=== PATIENT | female | born 1975 | race Caucasian/White ===

== ENCOUNTER 2017-03-28 19:16 | Emergency (ER) | payer BC, MEDICAID ==
[2017-03-28] MEDS ORDERED: Ondansetron 4 MG/2 ML SDV IVPUSH STA (19:55)
[2017-03-28] MEDS ORDERED: LORazepam 2 MG/ML Syringe IVPUSH ONE ×2 (19:55→21:43)
--- NOTE | 2017-03-28 20:07 | EDM.PDOC ---
ED HPI GENERAL MEDICAL PROBLEM - General Chief Complaint: Genitourinary Problem Stated Complaint: PELVIC PAIN Time Seen by Provider: 03/28/17 19:40 Source of Information: Reports: Patient History Limitations: Reports: No Limitations - History of Present Illness INITIAL COMMENTS - FREE TEXT/NARRATIVE: This patient is a 41 year old female that presents to the ER. Patent initial complaint is having bladder pain and feels like she has a UTI. She reports that she has a prolapsed bladder and she self caths. Once talking to the patient, she has nausea and dry heaves. She did not vomit. Patient then reprots symptoms of "brain zaps" like her brain is shaking, headache, dizziness, nausea, chest pain, soa, back pain, abd pain, pain all over her body, muscle cramps all over her body. She reports that she generally feels weak and feels generally bad. She reports she has also been having sweats and feeling hot. She reports all her symptoms began last night. She reports it feels also like her fibromyalgia is flaring up as well. The patient then reports that she stopped abruptly taking her Cymbalta. She reports she has not taken it in 3 days. She takes 60mg a day. She reports she has not taken it because it is expensive and she was hoping to fill it sometime next week. After education in the ER, she reports she did not know Cymbalta withdraw can be so bad. At this time, I will order labs, ekg, troponin, ua. I will give the patient something for anxiety and withdraw in ER. She is anxious and has periods of crying. Onset Date: 03/27/17 Duration: Hour(s): (24) Location: Reports: Head, Chest, Abdomen, Back, Pelvis, Generalized Quality: Reports: Ache Severity: Moderate Improves with: Reports: None Worsens with: Reports: None Associated Symptoms: Reports: Chest Pain, Diaphoresis, Headaches, Malaise, Nausea/Vomiting, Shortness of Breath, Weakness. Denies: Confusion, Cough, cough w sputum, Fever/Chills, Loss of Appetite, Rash, Seizure, Syncope Left Back Pain Score (Numeric/FACES): 8 Pelvic Pain Score (Numeric/FACES): 8 - Related Data Allergies Allergy/AdvReac Type Severity Reaction Status Date / Time ciprofloxacin [From Cipro] Allergy Hives Verified 03/28/17 19:24 erythromycin base Allergy Vomiting Verified 03/28/17 19:24 Penicillins Allergy Rash Verified 03/28/17 19:24 tetracycline Allergy Rash Verified 03/28/17 19:24 Home Meds: Home Meds DULoxetine [Cymbalta] 60 mg PO DAILY 03/28/17 [History] Hydrochlorothiazide 25 mg PO DAILY 03/28/17 [History] Ketorolac Tromethamine 10 mg PO BID PRN 03/28/17 [History] Levothyroxine [Synthroid] 100 mg PO DAILY 03/28/17 [History] Naproxen 500 mg PO BID 03/28/17 [History] Omeprazole 40 mg PO DAILY 03/28/17 [History] Oxybutynin Chloride [Oxybutynin Chloride ER] 15 mg PO DAILY 03/28/17 [History] Phenazopyridine HCl [Pyridium] 200 mg PO TID PRN 03/28/17 [History] busPIRone [Buspar] 10 mg PO TID 03/28/17 [History] hydrOXYzine HCl [hydrOXYzine] 50 mg PO QID PRN 03/28/17 [History] tiZANidine [Zanaflex] 4 mg PO TID PRN 03/28/17 [History] Past Medical History Cardiovascular History: Reports: Hypertension Gastrointestinal History: Reports: Irritable Bowel Syndrome Genitourinary History: Reports: Retention, Urinary, Other (See Below) Other Genitourinary History: PROLAPSED [employer] History: Reports: Dysfunctional Uterine Bleeding, , Other (See Below) Other OB/BYN History: 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 Musculoskeletal History: Reports: Arthritis, Fibromyalgia Psychiatric History: Reports: Anxiety, PTSD Endocrine/Metabolic History: Reports: Hypothyroidism Oncologic (Cancer) History: Reports: Cervix - Infectious Disease History Infectious Disease History: Reports: Rheumatic Fever - Past Surgical History Endocrine Surgical History: Reports: None Oncologic Surgical History: Reports: Other (See Below) Other Oncologic Surgeries/Procedures: TOTAL HYSTERECTOMY Social & Family History - Family History Family Medical History: Noncontributory - Tobacco Use Smoking Status *Q: Former Smoker Used Tobacco, but Quit: Yes Month Tobacco Last Used: 2015 - Recreational Drug Use Recreational Drug Use: No ED ROS GENERAL - Review of Systems Review Of Systems: See Below Constitutional: Reports: Chills, Malaise, Weakness, Fatigue, Night Sweats, Diaphoresis HEENT: Reports: No Symptoms Respiratory: Reports: Shortness of Breath, Pleuritic Chest Pain, Cough Cardiovascular: Reports: Chest Pain, Lightheadedness Endocrine: Reports: Fatigue GI/Abdominal: Reports: Abdominal Pain, Nausea. Denies: Vomiting : Reports: Pain (bladder) Musculoskeletal: Reports: Back Pain Skin: Reports: No Symptoms Neurological: Reports: Dizziness, Other (difficulty maintaining thoughts. fuzzy. ) Psychiatric: Reports: Anxiety. Denies: Hallucinations, Homicidal Ideation, Suicidal Ideation Hematologic/Lymphatic: Reports: No Symptoms Immunologic: Reports: No Symptoms ED EXAM, GENERAL - Physical Exam Exam: See Below Exam Limited By: No Limitations General Appearance: Alert, WD/WN, No Apparent Distress, Anxious Eye Exam: Bilateral Eye: EOMI, Normal Inspection, PERRL Ears: Normal External Exam, Normal Canal, Hearing Grossly Normal, Normal TMs Ear Exam: Bilateral Ear: Auricle Normal, Canal Normal, TM normal Nose: Normal Inspection, Normal Mucosa, No Blood Throat/Mouth: Normal Inspection, Normal Lips, Normal Teeth, Normal Gums, Normal Oropharynx, Normal Voice, No Airway Compromise Head: Atraumatic, Normocephalic Neck: Normal Inspection, Supple, Non-Tender, Full Range of Motion Respiratory/Chest: No Respiratory Distress, Lungs Clear, Normal Breath Sounds, No Accessory Muscle Use, Chest Non-Tender Cardiovascular: Normal Peripheral Pulses, Regular Rate, Rhythm (94 on exam. ), No Edema, No Gallop, No JVD, No Murmur, No Rub Peripheral Pulses: 2+: Radial (L), Radial (R), Posterior Tibial (L), Posterior Tibial (R) GI/Abdominal: Normal Bowel Sounds, Soft, No Organomegaly, No Distention, No Abnormal Bruit, No Mass, Pelvis Stable, Tender (mild generalized. Nonspecific). No: Distended, Guarding, Rigid, Rebound, Abnormal Bowel Sounds, Hernia, Mass, Hepatomegaly, Splenomegaly (Female) Exam: Deferred Rectal (Female) Exam: Deferred Back Exam: Normal Inspection, Full Range of Motion. No: CVA Tenderness (L), CVA Tenderness (R), Decreased Range of Motion, Muscle Spasm, Paraspinal Tenderness, Vertebral Tenderness Extremities: Normal Inspection, Normal Range of Motion, Non-Tender, No Pedal Edema, Normal Capillary Refill Neurological: Alert, Oriented, CN II-XII Intact, Normal Cognition, Normal Gait, No Motor/Sensory Deficits Psychiatric: Anxious, Tearful Skin Exam: Warm, Dry, Intact, Normal Color, No Rash Lymphatic: No Adenopathy EKG INTERPRETATION EKG Date: 03/28/17 Time: 20:27 Rhythm: NSR Rate (Beats/Min): 83 [place]: Normal P-Wave: Present QRS: Normal ST-T: Normal QT: Normal Course - Vital Signs Last Recorded V/S: Last Vital Signs Temp 97.9 F 03/28/17 19:17 Pulse 100 03/28/17 19:17 Resp 20 03/28/17 19:17 BP 184/120 H 03/28/17 19:17 Pulse Ox 99 03/28/17 19:17 - Orders/Labs/Meds Orders: Active Orders 24 hr Category Date Time Status Abdomen Pelvis w Cont [CT] Stat Exams 03/28/17 20:27 Taken Labs: Laboratory Tests 03/28/17 03/28/17 03/28/17 Range/Units 19:32 19:35 19:55 WBC 11.1 H (5.0-10.0) 10^3/uL RBC 4.63 (4.00-5.50) 10^6/uL Hgb 13.7 (12.0-16.0) g/dL Hct 41.0 (37.0-47.0) % MCV 88.6 (82.0-94.0) fL MCH 29.6 (27.0-32.0) pg MCHC 33.4 (33.0-38.0) g/dL RDW Coeff of Kellie 13.1 (11.0-15.0) % Plt Count 318 (150-400) 10^3/uL Neut % (Auto) 72.2 (35-85) % Lymph % (Auto) 21.2 (10-55) % Cotton % (Auto) 5.6 (0-16) % Eos % (Auto) 0.6 (0-5) % Baso % (Auto) 0.4 (0-3) % Neut # (Auto) 8.03 H (1.80-7.00) 10^3/uL Lymph # (Auto) 2.36 (1.00-4.80) 10^3/uL Cotton # (Auto) 0.62 (0.00-0.80) 10^3/uL Eos # (Auto) 0.07 (0.00-0.45) 10^3/uL Baso # (Auto) 0.04 10^3/uL Sodium (136-145) mEq/L Potassium (3.5-5.0) mEq/L Chloride (98-106) mEq/L Carbon Dioxide (21-32) mmol/L BUN (7-18) mg/dL Creatinine (0.6-1.0) mg/dL Est Cr Clr Drug Dosing mL/min Estimated GFR (MDRD) (>=60) mL/min Glucose (75-99) mg/dL Calcium (8.4-10.1) mg/dL Total Bilirubin (0.0-1.0) mg/dL AST (15-37) U/L ALT (12-78) U/L Alkaline Phosphatase (46-116) U/L Troponin I (0.00-0.06) ng/mL Total Protein (6.4-8.2) g/dL Albumin (3.4-5.0) g/dL Amylase (25-115) U/L Urine Color Yellow (YELLOW) Urine Appearance Clear (CLEAR) Urine pH 5.5 (4.5-8.0) Ur Specific [place] 1.020 (1.003-1.020) Urine Protein Negative (NEGATIVE) mg/dL Urine Glucose (UA) Negative (NEGATIVE) mg/dL Urine Ketones Negative (NEGATIVE) mg/dL Urine Occult Blood Negative (NEGATIVE) Urine Nitrite Negative (NEGATIVE) Urine Bilirubin Negative (NEGATIVE) Urine Urobilinogen 0.2 (0.2-1.0) EU/dL Ur Leukocyte Esterase Negative (NEGATIVE) Urine RBC Not seen (0-5) /HPF Urine WBC Not seen (0-5) /HPF Ur Squamous Epith Cells Few H (NOT SEEN) /HPF Urine Bacteria Few H (NOT SEEN) /HPF Urine HCG, Qual Negative 03/28/17 Range/Units 19:55 WBC (5.0-10.0) 10^3/uL RBC (4.00-5.50) 10^6/uL Hgb (12.0-16.0) g/dL Hct (37.0-47.0) % MCV (82.0-94.0) fL MCH (27.0-32.0) pg MCHC (33.0-38.0) g/dL RDW Coeff of Kellie (11.0-15.0) % Plt Count (150-400) 10^3/uL Neut % (Auto) (35-85) % Lymph % (Auto) (10-55) % Cotton % (Auto) (0-16) % Eos % (Auto) (0-5) % Baso % (Auto) (0-3) % Neut # (Auto) (1.80-7.00) 10^3/uL Lymph # (Auto) (1.00-4.80) 10^3/uL Cotton # (Auto) (0.00-0.80) 10^3/uL Eos # (Auto) (0.00-0.45) 10^3/uL Baso # (Auto) 10^3/uL Sodium 137 (136-145) mEq/L Potassium 4.0 (3.5-5.0) mEq/L Chloride 100 (98-106) mEq/L Carbon Dioxide 27 (21-32) mmol/L BUN 13 (7-18) mg/dL Creatinine 0.9 (0.6-1.0) mg/dL Est Cr Clr Drug Dosing 79.19 mL/min Estimated GFR (MDRD) > 60 (>=60) mL/min Glucose 132 H (75-99) mg/dL Calcium 9.5 (8.4-10.1) mg/dL Total Bilirubin 0.4 (0.0-1.0) mg/dL AST 18 (15-37) U/L ALT 33 (12-78) U/L Alkaline Phosphatase 76 (46-116) U/L Troponin I < 0.017 (0.00-0.06) ng/mL Total Protein 8.0 (6.4-8.2) g/dL Albumin 4.0 (3.4-5.0) g/dL Amylase 40 (25-115) U/L Urine Color (YELLOW) Urine Appearance (CLEAR) Urine pH (4.5-8.0) Ur Specific [place] (1.003-1.020) Urine Protein (NEGATIVE) mg/dL Urine Glucose (UA) (NEGATIVE) mg/dL Urine Ketones (NEGATIVE) mg/dL Urine Occult Blood (NEGATIVE) Urine Nitrite (NEGATIVE) Urine Bilirubin (NEGATIVE) Urine Urobilinogen (0.2-1.0) EU/dL Ur Leukocyte Esterase (NEGATIVE) Urine RBC (0-5) /HPF Urine WBC (0-5) /HPF Ur Squamous Epith Cells (NOT SEEN) /HPF Urine Bacteria (NOT SEEN) /HPF Urine HCG, Qual Meds: Medications Discontinued Medications Generic Name Dose Route Start Last Admin Trade Name Freq PRN Reason Stop Dose Admin Duloxetine HCl 60 mg 03/28/17 22:18 Cymbalta PO 03/28/17 22:19 ONETIME ONE Duloxetine HCl 60 mg 03/28/17 22:18 Cymbalta PO 03/28/17 22:19 ONETIME ONE Duloxetine HCl 60 mg 03/28/17 22:19 Cymbalta PO 03/28/17 22:20 ONETIME ONE Sodium Chloride 1,000 mls @ 1,000 mls/hr 03/28/17 20:28 03/28/17 20:32 Normal Saline IV 03/28/17 21:27 1,000 mls/hr .BOLUS ONE Administration Iopamidol 100 ml 03/28/17 20:46 03/28/17 21:18 Isovue-300 (61%) IVPUSH 03/28/17 20:47 100 ml ONETIME ONE Administration Ketorolac Tromethamine 30 mg 03/28/17 22:21 Toradol IVPUSH 03/28/17 22:22 ONETIME ONE Lorazepam 1 mg 03/28/17 19:55 03/28/17 20:29 Ativan IVPUSH 03/28/17 19:56 1 mg ONETIME ONE Administration Lorazepam 1 mg 03/28/17 21:43 03/28/17 21:56 Ativan IVPUSH 03/28/17 21:44 1 mg ONETIME ONE Administration Ondansetron HCl 4 mg 03/28/17 19:55 03/28/17 20:29 Zofran IVPUSH 03/28/17 19:56 4 mg NOW STA Administration Tamsulosin HCl 0.4 mg 03/28/17 22:20 Flomax PO 03/28/17 22:21 ONETIME ONE - Radiology Interpretation Free Text/Narrative:: Abd/Pelvis CT: Discussed with radiologist: 4mm ureter stone distal ureter, with mild hydroureter. Otherwise unremarkable. - Re-Assessments/Exams Free Text/Narrative Re-Assessment/Exam: 03/28/17 21:43 Patient when returned from CT scan was calm, not crying laughing conversation without difficulty. Then, she was on her cell phone with significant other, became upset, more anxious again. I will give patient more Ativan, will ask patient to not talk on cell phone while in the ER if she continues to become upset while on it. Will await ct results. I believe patient symptoms could be cause of Cymbalta withdraw and stress/anxiety related. Patient has refused narcotic pain medication for her abd/back pain. 03/28/17 22:15 Patient blood pressure is 122/76 taken manual by RN. I will discharge the patient. Departure - Departure Time of Disposition: 22:16 Disposition: Home, Self-Care 01 Condition: Fair Clinical Impression: Anxiety, Ureteral stone Serotonin withdrawal syndrome Qualifiers: Encounter type: initial encounter Qualified Code(s): T50.995A - Adverse effect of other drugs, medicaments and biological substances, initial encounter - Discharge Information Instructions: Benzodiazepine Withdrawal, Panic Attacks, Opioid Withdrawal Referrals: Provider,Unknown [Primary Care Provider] - Forms: ED Department Discharge Additional Instructions: I do not have Cymbalta Withdraw education, please find other withdraw medication education forms for educational purposes only Followup with your primary care provider Thursday Return to the ER for worsening of condition or any emergent concerns such as worsening of symptoms, seizures, or other concerns Increase fluids DO NOT STOP TAKING MEDICATIONS ABRUPTLY ON YOUR OWN Restart your Cymbalta now: I have given you Cymbalta for , Thursday and Thursday. 6 pills - My Orders Last 24 Hours: My Active Orders 03/28/17 20:27 Abdomen Pelvis w Cont [CT] Stat - Assessment/Plan Last 24 Hours: My Active Orders 03/28/17 20:27 Abdomen Pelvis w Cont [CT] Stat Plan: PLEASE SEE RN NOTE FOR PFSH.
[2017-03-28 20:17] LABS: CHLORIDE,CL 100 mEq/L (98-106); SODIUM,NA 137 mEq/L (136-145)
[2017-03-28] MEDS ORDERED: Sodium Chloride 0.9% 1,000 ML IV ONE (20:28)
[2017-03-28] MEDS ORDERED: Iopamidol 612 MG/ML 100 ML Bottle IVPUSH ONE (20:46)
[2017-03-28] MEDS ORDERED: DULoxetine 30 MG Cap PO ONE ×3 (22:18→22:19)
[2017-03-28] MEDS ORDERED: Tamsulosin 0.4 MG Cap.ER PO ONE (22:20)
[2017-03-28] MEDS ORDERED: Ketorolac 30 MG/ML SDV IVPUSH ONE (22:21)
== END 2017-03-28 22:45 | disposition home or self-care (01) ==
LOC: CC.ED 19:16
DX: N20.2 Calculus of kidney with calculus of ureter (principal); F41.9 Anxiety disorder, unspecified; T50.995A Adverse effect of other drugs, medicaments and biological substances, initial encounter; I10 Essential (primary) hypertension; E03.9 Hypothyroidism, unspecified; Z87.891 Personal history of nicotine dependence; Z88.0 Allergy status to penicillin; Z88.8 Allergy status to other drugs, medicaments and biological substances; Z88.1 Allergy status to other antibiotic agents; Z79.899 Other long term (current) drug therapy
CPT/HCPCS: 36415; 74177; 80053; 81001; 81025; 82150; 84484; 85025; 96374; 96375; 99284; A9270; J1885; J2060; J2405; J7030; Q9967; 93005; 96361; 96376